=== PATIENT | female | born 1975 | race Caucasian/White ===

== ENCOUNTER 2017-06-24 12:01 | Outpatient (CLI) | payer OTHER ==
--- NOTE | 2017-06-24 17:08 | XRAY Report ---
THREE VIEW RIGHT FOURTH FINGER: 06/24/2017 CLINICAL INDICATION: Injury, pain. AP, lateral, oblique views of the right fourth finger demonstrate no evidence of fracture or dislocat ion. No radiopaque foreign body is seen in the soft tissues. IMPRESSION: NO EVIDENCE OF FRACTURE. JOB #: [id number] EXT JOB #:[id number]
== END 2017-06-24 12:02 | disposition home or self-care (01) ==
LOC: DI.S 12:01
PROVIDERS: ATTEND Family Medicine
DX: S60.944A Unspecified superficial injury of right ring finger, initial encounter (principal)
CPT/HCPCS: 73140

== ENCOUNTER 2020-12-27 12:13 | Outpatient (CLI) | payer BC ==
--- NOTE | 2021-01-01 14:50 | Mammography Report ---
BILATERAL DIGITAL DIAGNOSTIC MAMMOGRAM 3D/2D: 12/27/2020 CLINICAL: Nipple discharge, left breast, not bloody. No prior exams were available for comparison. The tissue of both breasts is heterogeneously dense. T his may lower the sensitivity of mammography. No significant masses, calcifications, or other findings are seen in either breast. IMPRESSION: INCOMPLETE: NEEDS ADDITIONAL IMAGING EVALUATION There is no abnormality seen in the left breast to correspond with the area of clinical concern and d ischarge from the nipple, however, ultrasound is recommended. US will be performed and dictated separately. This exam was interpreted at Station ID: [id number]. NOTE: For mammograms, a report in lay terms will be sent to the patient. Approximately 15% of breast malignancies will not be visualized mammographically. In the management of a palpable breast mass, a negative mammogram must not discourage biopsy of a clinically suspicious lesion. Electronically Signed By: Fabiano Urbano acr/:12/29/2020 06:52:52 ACR BI-RADS Category 0: Incomplete 3340F PARENCHYMAL PATTERN: (D) - The breast(s) demonstrate(s) heterogeneously dense fibroglandular parkyy ma. BI-RADS CATEGORY: (0) - 0 Ultrasound [id number] Immediate follow-up LATERALITY: (B)
--- NOTE | 2021-01-01 14:51 | Ultrasound Report ---
LIMITED ULTRASOUND OF LEFT BREAST: 12/27/2020 CLINICAL: Nipple discharge, left breast, not bloody. Comparison is made to exam dated: 12/27/2020 mammogram - [facility]. Color flow and real-time ultrasound of the left breast retroareolar were performed. Su scale image s of the real-time examination were reviewed. IMPRESSION: NEGATIVE There is no sonographic evidence of malignancy. There is no abnormality seen in the left breast to correspond with the discharge from the nipple. Return to annual mammogram screening schedule is recommended. If there is a persistent or bloody discharge, recommend re-evaluation. This exam was interpreted at Station ID: [id number]. Electronically Signed By: Fabiano Urbano acr/:12/29/2020 16:43:33 Ultrasound BI-RADS: 1 Negative BI-RADS CATEGORY: (1) - 1 RECOMMENDATION: (ANNUAL) - Recommend routine annual screening mammography. [id number] return to screening LATERALITY: (B)
== END 2020-12-27 12:14 | disposition home or self-care (01) ==
LOC: DI 12:13
PROVIDERS: ATTEND Physician Assistant
DX: N64.52 Nipple discharge (principal); R92.8 Other abnormal and inconclusive findings on diagnostic imaging of breast

== ENCOUNTER 2021-01-18 11:20 | Outpatient (CLI) | payer BC ==
--- NOTE | 2021-01-18 11:59 | XRAY Report ---
PROCEDURE: Knee 3 View BILAT INDICATIONS: KNEE PAIN TECHNIQUE: 3 views of the right and left knee(s) were acquired. COMPARISON: None. FINDINGS: Bones: No fractures or dislocations. No suspicious bony lesions. Soft tissues: No joint effusion. No suspicious soft tissue calcifications. IMPRESSION: Normal bilateral knees Reviewed by: Fabiano Urbano on 01/18/2021 11:58 AM PDT Approved by: Fabiano Urbano on 01/18/2021 11:58 AM PDT Station ID: [id number]
[2021-01-18 15:01] LABS: THYROID STIMULATING HORMONE 2.11 uIU/mL (0.34-5.60)
[2021-01-18 15:02] LABS: FREE T4 (FREE THYROXINE) 0.99 ng/dL (0.58-1.64)
== END 2021-01-18 11:21 | disposition home or self-care (01) ==
LOC: DI.S 11:20
PROVIDERS: ATTEND Registered Nurse
DX: M25.561 Pain in right knee (principal); M25.562 Pain in left knee; N64.52 Nipple discharge
CPT/HCPCS: 36415; 84439; 84443

== ENCOUNTER 2022-11-01 10:44 | Outpatient (CLI) | payer OTHER ==
--- NOTE | 2022-11-04 13:45 | Mammography Report ---
BILATERAL DIGITAL DIAGNOSTIC MAMMOGRAM 3D/2D: 11/01/2022 CLINICAL: Diffuse left breast pain. Due for bilateral imaging. Comparison is made to exams dated: 12/27/2020 ultrasound and 12/27/2020 mammogram - [facility]. There are scattered areas of fibroglandular density in both breasts (category b / 25%-50% glandular t issue). No significant masses, calcifications, or other findings are seen in either breast. Specifically, no finding to explain the patient's pain. Mammograms are otherwise stable. IMPRESSION: INCOMPLETE: NEEDS ADDITIONAL IMAGING EVALUATION There is no abnormality seen in the left breast to correspond with the pain in the lower outer quadra nt. Ultrasound is recommended for full evaluation of this area. This was performed immediately follo wing this exam. Mammograms are stable. Based on the Tyrer Cuzick model (a risk assessment model) the patients lifetime risk is 10.6% and he r 10 year risk is 1.9%. According to the ACR, ACS, and NCCN guidelines, an annual breast MRI exam john ng with mammogram is recommended if the patients lifetime risk is 20% or greater. This exam was interpreted at Station ID: [id number]. NOTE: For mammograms, a report in lay terms will be sent to the patient. Approximately 15% of breast malignancies will not be visualized mammographically. In the management of a palpable breast mass, a negative mammogram must not discourage biopsy of a clinically suspicious lesion. Electronically Signed By: Carine simon/:11/01/2022 13:33:59 ACR BI-RADS Category 0: Incomplete 3340F PARENCHYMAL PATTERN: (A) - The breast(s) demonstrate(s) scattered fibroglandular densities. BI-RADS CATEGORY: (0) - 0 Ultrasound [id number] Immediate follow-up LATERALITY: (B)
--- NOTE | 2022-11-04 13:45 | Ultrasound Report ---
LIMITED ULTRASOUND OF LEFT BREAST: 11/01/2022 CLINICAL: Patient returns today to evaluate an asymmetry in the left breast. Focal left breast pain. Comparison is made to exams dated: 11/01/2022 mammogram, 12/27/2020 ultrasound, and 12/27/2020 mammogra [facility]. Color flow ultrasound of the left breast 2 o'clock and 6 o'clock regions was performed. Su scale images of the real-time examination were reviewed. No significant abnormalities were seen sonographically in the left breast. Specifically, no finding to explain the patient's pain. IMPRESSION: NEGATIVE There is no sonographic explanation for left inferolateral pain and no evidence of malignancy. Return to annual mammogram screening schedule is recommended. Findings and recommendations were conveyed to the patient at time of exam. This exam was interpreted at Station ID: [id number]. Electronically Signed By: Carine simon/:11/01/2022 13:34:58 letter sent: No_Letter Ultrasound BI-RADS: 1 Negative BI-RADS CATEGORY: (1) - 1 RECOMMENDATION: (ANNUAL) - Recommend routine annual screening mammography. [id number] return to screening LATERALITY: (B)
== END 2022-11-01 10:45 | disposition home or self-care (01) ==
LOC: DI 10:44
PROVIDERS: ATTEND Nurse Practitioner Family
DX: N64.4 Mastodynia (principal)